=== PATIENT | male | born 1965 | race Caucasian/White ===

== ENCOUNTER → 2016-10-09 | Outpatient (CLI) | payer BC ==
--- NOTE | 2016-10-09 08:48 | RAD ---
Indication nonsmoker. Incidental finding from prior testing. Assessment of lung nodule. Noncontrast imaging through the chest was performed. No prior imaging of the chest is available. There is a 6 mm pulmonary nodule in the right middle lobe, image 51 series 2. Follow-up imaging along the lines of the Fleischner criteria advised. An additional finding in either lung is not seen. No significant mediastinal finding is seen. There is a small hiatus hernia. Imaging through the upper abdomen is unremarkable. There are fractures of 2 right posterior and inferior ribs which appear recent. Clinical correlation advised. IMPRESSION: No acute finding in the chest. 6 mm noncalcified pulmonary nodule in the right middle lobe. Follow-up imaging along the lines of the Fleischner criteria advised. Recent fractures right posterior inferior ribs. Clinical correlation advised Nodules detected incidentally at non-screening CT Nodule size (mm) less than or equal to 4 Low Risk patients- no follow-up needed High Risk patients- follow-up at 12 months and if no change, no further imaging needed. Nodule size > 4-6 mm Low risk patients- follow- up at 12 months and if no change, no further imaging needed High risk patients- initial follow-up CT at 6-12 months and then at 18-24 months if no change. Nodule Size > 6-8 mm Low risk patients- initial follow-up CT at 6-12 months and then at 18-24 months if no change. High risk patients- initial follow- up CT at 3-6 months and then at 9-12 months if no change, Nodule Size >8 mm Either low or high risk patients: Follow-up CT at around 3, 9 and [address], PET, and/or biopsy Note: newly detected indeterminate nodule in person 35 years of age or older. Low risk patients- minimal or absent history of smoking and/or other known risk factors. High risk patients- history of smoking or of other known risk factors. . PQRS Compliance Statement: One or more of the following individualized dose reduction techniques were utilized for this examination: 1. Automated exposure control 2. Adjustment of the mA and/or kV according to patient size 3. Use of iterative reconstruction technique
== END | disposition home or self-care (01) ==
LOC: CT 07:41
PROVIDERS: ATTEND Physician Assistant
DX: R91.1 Solitary pulmonary nodule (principal); Z87.891 Personal history of nicotine dependence
CPT/HCPCS: 71250

== ENCOUNTER → 2019-01-01 | Outpatient (CLI) | payer BC ==
--- NOTE | 2019-01-01 10:43 | RAD ---
Examination: CT CHEST WO CONTRAST History: Pulmonary nodule follow-up Comparison/Correlation: 10/09/2016 CT chest without contrast Findings: Axial images of chest were obtained without contrast. Sagittal and coronal reformatted images were provided. Tracheobronchial tree is unremarkable. No infiltrate or pleural effusion. No pneumothorax. There is a right perihilar nodule in the right middle lobe measuring up to 0.7 cm. It is similar upon correlation with the previous exam considering differences in measurement technique. It is smoothly marginated. No new nodules or suspicious infiltrates. No enlarged thoracic lymph nodes. Bony structures are unremarkable. Small hiatal hernia is present. Bony structures are unremarkable. Partially visualized upper abdomen is unremarkable. Impression: Hiatal hernia. No change in the right perihilar pulmonary nodule. As there is stability of over 2 years, benign etiology is presumed. No further follow-up is needed. PQRS Compliance Statement: One or more of the following individualized dose reduction techniques were utilized for this examination: 1. Automated exposure control 2. Adjustment of the mA and/or kV according to patient size 3. Use of iterative reconstruction technique Electronically signed by: Bakari Alston MD (01/01/2019 10:41 AM) [facility]
== END | disposition home or self-care (01) ==
LOC: CT 09:19
PROVIDERS: ATTEND Physician Assistant
DX: K44.9 Diaphragmatic hernia without obstruction or gangrene (principal); R91.1 Solitary pulmonary nodule
CPT/HCPCS: 71250